=== PATIENT | female | born 1985 | race Caucasian/White ===

== ENCOUNTER 2016-07-06 21:36 | Emergency (ER) | payer MEDICAID ==
[~2016-07-06] VITALS: Ht 167.6 cm; Wt 81.6 kg
[2016-07-06 21:36] VITALS: BP 130/70; PULSE 117; RESP 18; TEMP 99.2; O2SAT 97
[2016-07-07 00:29] VITALS: BP 124/67; PULSE 98; RESP 18; TEMP 99.2; O2SAT 97
== END 2016-07-07 00:29 | disposition home or self-care (01) ==
LOC: SED 21:36
DX: J03.90 Acute tonsillitis, unspecified (principal); R03.0 Elevated blood-pressure reading, without diagnosis of hypertension
CPT/HCPCS: 99283